=== PATIENT | male | born 1980 | race Caucasian/White ===

== ENCOUNTER 2020-09-29 08:27 | Outpatient (CLI) | payer OTHER | END 2020-09-29 08:28 | disposition home or self-care (01) | LOC: LAB 08:27 | PROVIDERS: ATTEND Otolaryngology | DX: R42 Dizziness and giddiness (principal) ==

== ENCOUNTER 2020-09-30 11:49 | Outpatient (CLI) | payer OTHER | END 2020-09-30 13:21 | disposition home or self-care (01) | LOC: TOM 11:49 | PROVIDERS: ATTEND Otolaryngology | DX: R59.0 Localized enlarged lymph nodes (principal) ==

== ENCOUNTER 2020-12-27 05:42 | Outpatient (CLI) | payer OTHER | END 2020-12-27 10:50 | disposition home or self-care (01) | LOC: LAB 05:42 | DX: Z20.818 Contact with and (suspected) exposure to other bacterial communicable diseases (principal); Z20.828 Contact with and (suspected) exposure to other viral communicable diseases ==